=== PATIENT | female | born 1990 | race Two or more races ===

== ENCOUNTER 2018-08-13 22:11 | Outpatient (CLI) | payer MEDICAID ==
[~2018-08-13] VITALS: Ht 162.6 cm; Wt 79.0 kg
== END 2018-08-13 23:20 | disposition home or self-care (01) ==
LOC: LDOP 22:11
PROVIDERS: ATTEND Obstetrics & Gynecology
DX: O36.8130 Decreased fetal movements, third trimester, not applicable or unspecified (principal); Z3A.38 38 weeks gestation of pregnancy
CPT/HCPCS: 59025; 99211; G0463

== ENCOUNTER 2018-08-21 06:19 | Inpatient (IN) | payer MEDICAID ==
[~2018-08-21] VITALS: Ht 162.6 cm; Wt 80.0 kg
[2018-08-21 06:30] VITALS: BP 130/76
[2018-08-21] MEDS ORDERED: PREN-3 PO (06:37)
[2018-08-21] MEDS ORDERED: OXYTOCIN 30U/ 0.9% NaCL 500ML 500 ML IV ONE (06:51)
[2018-08-21] MEDS ORDERED: LACTATED RINGERS 1,000 ML IV SCH (06:51)
[2018-08-21] MEDS ORDERED: LIDOCAINE/PF 1%, 30ML ONE (06:55)
[2018-08-21] MEDS ORDERED: OXYTOCIN 30U/ 0.9% NaCL 500ML 500 ML ONE (06:55)
[2018-08-21] MEDS ORDERED: MISOPROSTOL 200 MCG TABLET ONE (06:55)
[2018-08-21] MEDS ORDERED: ONDANSETRON 2MG/ML, 2ML IVPush PRN (07:00)
[2018-08-21] MEDS ORDERED: FENTANYL PF 100 MCG/2ML IV PRN (07:00)
[2018-08-21] MEDS ORDERED: FENTANYL PF 100 MCG/2ML IVPush PRN (07:00)
[2018-08-21 07:14] LABS: BASOPHILS # (AUTO) 0.03 x10^3/uL (0-0.1); BASOPHILS % (AUTO) 0 % (0-1); EOSINOPHILS # (AUTO) 0.09 x10^3/uL (0-0.4); EOSINOPHILS % (AUTO) 1 % (1-7); LYMPHOCYTES # (AUTO) 1.88 x10^3/uL (1-3.4); LYMPHOCYTES % (AUTO) 18 % (22-44); MD NO; MEAN CORPUSCULAR HEMOGLOBIN 31.7 pg (27.0-34.8); MEAN CORPUSCULAR HGB CONC 33.3 g/dL (32.4-35.8); MEAN CORPUSCULAR VOLUME 95.1 fL (80-100); MEAN PLATELET VOLUME 8.1 fL (7.4-10.4); MONOCYTES # (AUTO) 0.67 x10^3/uL (0.2-0.8); MONOCYTES % (AUTO) 6 % (2-9); NEUTROPHILS # (AUTO) 7.91 x10^3/uL (1.8-6.8); NEUTROPHILS % (AUTO) 75 % (42-75); PLATELET COUNT 207 x10^3/uL (130-400); RED BLOOD COUNT 4.15 x10^6/uL (3.82-5.3); RED CELL DISTRIBUTION WIDTH 14.6 % (9.6-15.2)
[2018-08-21] MEDS ORDERED: NEWBORN KIT ONE (07:19)
[2018-08-21] MEDS: OXYTOCIN 30U/ 0.9% NaCL 500ML 500 ML IV SCH ×2 (08:10→18:10)
[2018-08-21] MEDS ORDERED: IBUPROFEN 600 MG TABLET ONE (08:16)
[2018-08-21] MEDS ORDERED: MISOPROSTOL 200 MCG TABLET PR PRN (08:30)
[2018-08-21] MEDS ORDERED: DOCUSATE 100 MG CAPSULE PO PRN (08:30)
[2018-08-21] MEDS ORDERED: ACETAMINOPHEN 325 MG TABLET PO PRN (08:30)
[2018-08-21] MEDS ORDERED: IBUPROFEN 600 MG TABLET PO PRN (08:30)
[2018-08-21] MEDS ORDERED: ONDANSETRON 2MG/ML, 2ML IV PRN (08:30)
[2018-08-21] MEDS ORDERED: OXYcodone IR 5MG TABLET PO PRN (08:30)
[2018-08-21] MEDS ORDERED: OXYcodone/APAP 5/325MG TABLET PO PRN (08:30)
[2018-08-21] MEDS: PRENATAL VIT/IRON/FA 1 EACH TABLET PO SCH (09:00)
[2018-08-21 11:00] VITALS: BP 102/57
[2018-08-21 15:00] VITALS: BP 99/63
[2018-08-21 16:45] LABS: BASOPHILS # (AUTO) 0.04 x10^3/uL (0-0.1); BASOPHILS % (AUTO) 0 % (0-1); EOSINOPHILS # (AUTO) 0.02 x10^3/uL (0-0.4); EOSINOPHILS % (AUTO) 0 % (1-7); LYMPHOCYTES % (AUTO) 14 % (22-44); MD NO; MEAN CORPUSCULAR HEMOGLOBIN 32.3 pg (27.0-34.8); MEAN CORPUSCULAR HGB CONC 33.8 g/dL (32.4-35.8); MEAN CORPUSCULAR VOLUME 95.4 fL (80-100); MEAN PLATELET VOLUME 8.7 fL (7.4-10.4); MONOCYTES # (AUTO) 0.69 x10^3/uL (0.2-0.8); MONOCYTES % (AUTO) 6 % (2-9); NEUTROPHILS # (AUTO) 8.61 x10^3/uL (1.8-6.8); NEUTROPHILS % (AUTO) 79 % (42-75); PLATELET COUNT 196 x10^3/uL (130-400); RED BLOOD COUNT 3.63 x10^6/uL (3.82-5.3); RED CELL DISTRIBUTION WIDTH 14.6 % (9.6-15.2)
[2018-08-21 20:20] VITALS: BP 106/69
[2018-08-21] MEDS ORDERED: DIPH,PERTUSS(ACELL),TET VAC/PF NC IM-VACC ONE (21:00)
[2018-08-22 00:30] VITALS: BP 109/66
[2018-08-22] MEDS: OXYTOCIN 30U/ 0.9% NaCL 500ML 500 ML IV SCH (04:10)
[2018-08-22] MEDS ORDERED: IBUP-1222 PO (07:05)
[2018-08-22] MEDS: PRENATAL VIT/IRON/FA 1 EACH TABLET PO SCH (08:09)
[2018-08-22 08:42] VITALS: BP 118/79
== END 2018-08-22 13:40 | disposition home or self-care (01) | DRG 807 ==
LOC: LDOP 06:19 → LDIP 06:49 → 2NW 09:58
PROVIDERS: ADMIT Obstetrics & Gynecology; ATTEND Obstetrics & Gynecology
PROC: 10E0XZZ Delivery of Products of Conception, External Approach (ICD-10-PCS; principal; 2018-08-21)
PROC: 0HQ9XZZ Repair Perineum Skin, External Approach (ICD-10-PCS; 2018-08-21)
DX: O70.0 First degree perineal laceration during delivery (principal); Z37.0 Single live birth; Z3A.39 39 weeks gestation of pregnancy
CPT/HCPCS: 36415; 85025; 86850; 86900; 89060; 90715; 99285; G0378; J2590; J7120; Q0114

== ENCOUNTER 2018-08-23 22:29 | Emergency (ER) | payer MEDICAID ==
[~2018-08-23] VITALS: Ht 162.6 cm; Wt 74.9 kg
[~2018-08-23 22:29] MED LIST: IBUP-1222 PO; PREN-3 PO
[2018-08-23 22:32] VITALS: BP 124/83
[2018-08-23] MEDS ORDERED: ACETAMINOPHEN 325 MG TABLET ONE (23:13)
[2018-08-23] MEDS ORDERED: ACETAMINOPHEN 325 MG TABLET PO ONE (23:30)
[2018-08-23 23:48] LABS: RAPID INFLUENZA A Negative (Negative); RAPID INFLUENZA B Negative (Negative)
== END 2018-08-24 | disposition home or self-care (01) ==
LOC: ED 23:26
DX: J02.9 Acute pharyngitis, unspecified (principal); R50.9 Fever, unspecified
CPT/HCPCS: 87400; 99284

== ENCOUNTER 2020-01-15 22:53 | Emergency (ER) | payer MEDICAID ==
[~2020-01-15] VITALS: Ht 162.6 cm; Wt 64.8 kg
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
[2020-01-16] MEDS ORDERED: KETOROLAC 30 MG/1 ML IM ONE
[2020-01-16] MEDS ORDERED: DIAZEPAM 5 MG TABLET PO ONE
--- NOTE | 2020-01-16 00:04 | NUR ---
BETSY HEATON AT BEDSIDE TO ASSESS PT AT THIS TIME.
[2020-01-16] MEDS ORDERED: DIAZEPAM 5 MG TABLET ONE (00:08)
[2020-01-16] MEDS ORDERED: KETOROLAC 30 MG/1 ML ONE (00:08)
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
--- NOTE | 2020-01-16 00:13 | NUR ---
PT MEDICATED PER MAR
[2020-01-16] MEDS ORDERED: ACETAMINOPHEN 500 MG TABLET PO ONE (01:00)
[2020-01-16] MEDS ORDERED: LIDODERM 5% PATCH TD ONE ×2 (01:00→01:34)
[2020-01-16 01:31] VITALS: BP 119/53
[2020-01-16] MEDS ORDERED: ACETAMINOPHEN 500 MG TABLET ONE (01:34)
== END 2020-01-16 01:50 | disposition home or self-care (01) ==
LOC: ED 01-16 01:47
DX: S39.012A Strain of muscle, fascia and tendon of lower back, initial encounter (principal); M62.830 Muscle spasm of back; X58.XXXA Exposure to other specified factors, initial encounter; Y93.89 Activity, other specified; Y92.89 Other specified places as the place of occurrence of the external cause; Y99.8 Other external cause status
CPT/HCPCS: 96372; 99283; J1885